=== PATIENT | female | born 1975 ===

== ENCOUNTER 2020-11-08 08:57 | Outpatient (CLI) | payer OTHER, SELFPAY | END 2020-11-08 08:58 | disposition home or self-care (01) | LOC: ANHCOVIDVC 08:57 | PROVIDERS: PCP Student in an Organized Health Care Education/Training Program | DX: Z23 Encounter for immunization (principal) | CPT/HCPCS: 0001A; 91300 ==

== ENCOUNTER 2020-11-29 08:55 | Outpatient (CLI) | payer OTHER, SELFPAY | END 2020-11-29 08:56 | disposition home or self-care (01) | LOC: ANHCOVIDVC 08:56 | PROVIDERS: PCP Student in an Organized Health Care Education/Training Program | DX: Z23 Encounter for immunization (principal) | CPT/HCPCS: 0002A; 91300 ==